=== PATIENT | female | born 1995 | race Caucasian/White ===

== ENCOUNTER 2017-06-06 19:54 | Emergency (ER) | END 2017-06-06 21:41 | disposition left against medical advice (07) | LOC: UCCORT 19:54 | DX: J02.9 Acute pharyngitis, unspecified (principal); Z53.21 Procedure and treatment not carried out due to patient leaving prior to being seen by health care provider ==

== ENCOUNTER 2017-10-15 16:15 | Emergency (ER) | payer BC ==
[2017-10-15 17:36] VITALS: BP 116/97
--- NOTE | 2017-10-15 18:17 | ED ---
GI/ HPI - HPI Summary HPI Summary: 22 yr old with complaint of dysuria, frequency of urination, flank pain intermittent and fever. Onset two days ago. Associated with fever and chills. no nausea vomiting. She has no other complaints. She has had prior UTI in the past. - History of Current Complaint Chief Complaint: UCGU Time Seen by Provider: 10/15/17 17:43 Stated Complaint: URINARY Hx Last Menstrual Period: 10/08/17 Pain Intensity: 7 - Allergy/Home Medications Allergies/Adverse Reactions: Allergies Allergy/AdvReac Type Severity Reaction Status Date / Time No Known Allergies Allergy Verified 10/15/17 17:36 Home Medications: Home Medications Ibuprofen TAB* [Advil TAB*] 400 mg PO Q6H PRN 10/15/17 [History Confirmed ] Norgestimate-Ethinyl Estradiol [Tri-Sprintec 0.18/0.215/0.25 mg-35 Mcg] 1 tab PO DAILY 10/15/17 [History Confirmed 10/15/17] PMH/Surg Hx/FS Hx/Imm Hx Previously Healthy: Yes - Surgical History Surgery Procedure, Year, and Place: TONSILECTOMY. WISDOM TEETH EXTRACTIONS Infectious Disease History: No Infectious Disease History: Denies: Traveled Outside the [place] in Last 30 Days - Family History Known Family History: Positive: None - Social History Occupation: Student Alcohol Use: Weekly Substance Use Type: Reports: None Smoking Status (MU): Never Smoked Tobacco Review of Systems Positive: Fever, Chills Positive: dysuria, frequency, flank pain. Negative: hematuria All Other Systems Reviewed And Are Negative: Yes Physical Exam Triage Information Reviewed: Yes Vital Signs On Initial Exam: Initial Vitals Temp Pulse Resp BP Pulse Ox 99.1 F 89 16 116/97 100 10/15/17 17:26 10/15/17 17:26 10/15/17 17:26 10/15/17 17:26 10/15/17 17:26 Vital Signs Reviewed: Yes Appearance: Positive: Well-Appearing, No Pain Distress Skin: Positive: Warm, Skin Color Reflects Adequate Perfusion Head/Face: Positive: Normal Head/Face Inspection Eyes: Positive: EOMI ENT: Positive: Pharynx normal, TMs normal Respiratory/Lung Sounds: Positive: Clear to Auscultation, Breath Sounds Present Cardiovascular: Positive: RRR. Negative: Murmur Abdomen Description: Positive: Nontender, CVA Tenderness (R) Musculoskeletal: Positive: Strength/ROM Intact Neurological: Positive: Sensory/Motor Intact, Alert, Oriented to Person Place, Time, CN Intact II-III Psychiatric: Positive: Normal - [place] Coma Scale Best Eye Response: 4 - Spontaneous Best Motor Response: 6 - Obeys Commands Best Verbal Response: 5 - Oriented Coma Scale Total: 15 Diagnostics - Vital Signs Vital Signs Temp Pulse Resp BP Pulse Ox 10/15/17 17:26 99.1 F 89 16 116/97 100 - Laboratory Lab Results: Lab Results 10/15/17 10/15/17 Range/Units 17:41 17:42 POC Urine Color Other POC Urine Clarity Cloudy POC Urine pH 7.0 (5-9) POC Ur Specif Leo 1.020 (1.010-1.030) POC Urine Protein 2+ H (Negative) POC Ur Glucose (UA) Negative (Negative) POC Urine Ketones Negative (Negative) POC Urine Blood 3+ H (Negative) POC Urine Nitrite Positive H (Negative) POC Urine Bilirubin Negative (Negative) POC Urine Urobilinogen 0.2 (Negative) POC U Leukocyte Esteras 3+ H (Negative) POC Ur Test Negative (Negative) Lab Statement: Any lab studies that have been ordered have been reviewed, and results considered in the medical decision making process. GIGU Course/Dx - Course Course Of Treatment: 22 yr old female who is not presently sexually active. She is on oral contraceptives. has been informed that antibioitics can cause control not to work. Rx Augmentin for ten days. - Diagnoses Provider Diagnoses: Pyelonephritis Discharge - Discharge Plan Condition: Good Disposition: HOME Prescriptions: Amoxicillin/Clavulanate TAB* [Augmentin TAB 875*] 875 mg PO BID #20 tab Patient Education Materials: Kidney Infection (ED) Referrals: [facility] [Outside] - 2 Days No Primary Care Phys,NOPCP [Primary Care Provider] -
== END 2017-10-15 18:17 | disposition home or self-care (01) ==
LOC: UCCORT 16:15
DX: N10 Acute pyelonephritis (principal); B96.20 Unspecified Escherichia coli [E. coli] as the cause of diseases classified elsewhere; Z32.02 Encounter for pregnancy test, result negative; Z79.3 Long term (current) use of hormonal contraceptives; Z87.440 Personal history of urinary (tract) infections; Z90.89 Acquired absence of other organs
CPT/HCPCS: 81003; 84702; 87077; 87086; 87186; 99212; G0463

== ENCOUNTER 2017-11-02 11:27 | Emergency (ER) | payer BC ==
[2017-11-02 14:49] VITALS: BP 125/83
--- NOTE | 2017-11-02 15:10 | UC ---
Throat Pain/Nasal Alex HPI - HPI Summary HPI Summary: Pt c/o gradual onset of sore throat and generalized malaise X 2 days. - History of Current Complaint Chief Complaint: UCGeneralIllness Stated Complaint: SORE THROAT, RESPIRATORY Time Seen by Provider: 11/02/17 14:45 Hx Obtained From: Patient Hx Last Menstrual Period: 10/19/17 on BCP ?: No Onset/Duration: Gradual Onset, Lasting Days, Still Present Severity: Mild Pain Intensity: 7 Associated Signs & Symptoms: Positive: Dysphagia - Epiglottits Risk Factors Epiglottis Risk Factors: Negative - Allergies/Home Medications Allergies/Adverse Reactions: Allergies Allergy/AdvReac Type Severity Reaction Status Date / Time No Known Allergies Allergy Verified 11/02/17 14:49 Home Medications: Home Medications Norgestimate-Ethinyl Estradiol [Trinessa Tablet] 1 each PO DAILY 11/02/17 [ History Confirmed 11/02/17] PMH/Surg Hx/FS Hx/Imm Hx Previously Healthy: Yes - Surgical History Surgical History: Yes Surgery Procedure, Year, and Place: TONSILECTOMY. WISDOM TEETH EXTRACTIONS - Family History Known Family History: Positive: Cardiac Disease - Social History Occupation: Student Lives: Dormitory/Roommates Alcohol Use: Weekly Alcohol Amount: 2 times a week Substance Use Type: None Smoking Status (MU): Never Smoked Tobacco Have You Smoked in the Last Year: No Review of Systems Constitutional: Fever Skin: Negative Eyes: Negative ENT: Sore Throat Respiratory: Negative Cardiovascular: Negative Gastrointestinal: Negative Genitourinary: Negative Motor: Negative Neurovascular: Negative Musculoskeletal: Negative Neurological: Negative Psychological: Negative Is Patient Immunocompromised?: No All Other Systems Reviewed And Are Negative: Yes Physical Exam Triage Information Reviewed: Yes Appearance: Well-Appearing Vital Signs: Initial Vital Signs Temp 99.1 F 11/02/17 14:43 Pulse 85 11/02/17 14:43 Resp 16 11/02/17 14:43 BP 125/83 11/02/17 14:43 Pulse Ox 100 11/02/17 14:43 Vital Signs Reviewed: Yes Eye Exam: Normal ENT Exam: Other ENT: Positive: Pharynx normal Dental Exam: Normal Neck exam: Other Neck: Positive: Enlarged Nodes @ - bilateral submaxillary Respiratory Exam: Normal Cardiovascular Exam: Normal Musculoskeletal Exam: Normal Neurological Exam: Normal Psychological Exam: Normal Skin Exam: Normal Throat Pain/Nasal Course/Dx - Differential Dx/Diagnosis Differential Diagnosis/HQI/PQRI: Influenza, Pharyngitis, URI Provider Diagnoses: sore throat. viral syndrome Discharge - Discharge Plan Condition: Stable Disposition: HOME Prescriptions: Magic Mouth Was-TALISHA/MAAL/LIDO* 5 ml SWISH SWAL QID PRN #100 ml PRN Reason: Pain Patient Education Materials: Pharyngitis (ED), Viral Syndrome (ED) Referrals: [facility] [Outside] No Primary Care Phys,NOPCP [Primary Care Provider] -
== END 2017-11-02 15:18 | disposition home or self-care (01) ==
LOC: UCCORT 11:27
DX: J02.9 Acute pharyngitis, unspecified (principal); B34.9 Viral infection, unspecified
CPT/HCPCS: 87651; 99212; G0463